=== PATIENT | female | born 1945 | race Caucasian/White ===

== ENCOUNTER 2024-02-21 04:02 | Emergency (ER) | payer MEDICARE, SELFPAY ==
[2024-02-21 04:09] VITALS: BP 179/97; PULSE 98; RESP 18; TEMP 36.6; O2SAT 96; BMI 28.2
[2024-02-21 05:14] LABS: Basophils % 0.1 %; Eosinophils % 0.1 %; Hematocrit 38.5 % (36-47); Lymphocytes # 0.5 10^3/uL (0.8-4.8); Lymphocytes % 7.3 %; Mean Corpuscular HGB Conc 32.7 g/dL (30-55); Mean Corpuscular Hemoglobin 29.6 pg (27-33); Mean Corpuscular Volume 90.6 fl (85-98); Mean Platelet Volume 9.2 fL (7.4-10.4); Monocytes # 0.7 10^3/uL (0.2-0.9); Monocytes % 10.1 %; Neutrophils # 5.58 10^3/uL (1.8-7.7); Neutrophils % 82.1 %; Nucleated Red Blood Cells % 0 %; Platelet Count 212 10^3/cmm (157-399); Red Blood Count 4.25 10^6/uL (3.85-5.65); Red Cell Distribution Width 14.6 % (12.1-15.1); White Blood Count 6.81 10^3/uL (3.29-11.43)
[2024-02-21 05:32] LABS: Alanine Aminotransferase 34 U/L (0-33); Albumin Level 4.4 g/dL (3.5-5.2); Alkaline Phosphatase 90 U/L (35-105); Anion Gap 18.2 (5-19); Aspartate Amino Transferase 37 U/L (0-32); Blood Urea Nitrogen 6 mg/dL (8-23); Calcium 8.8 mg/dL (8.5-10.5); Carbon Dioxide 25 mmol/L (22-29); Chloride 92 mmol/L (98-107); Creatinine Clr Calc Pharmacy 62.5973; Globulin 3.3 g/dL (1.3-4.6); Glucose 131 mg/dL (65-115); Magnesium 1.6 mg/dL (1.7-2.3); Osmolality Calculated 273 mOsm/kg (285-295); Potassium 3.2 mmol/L (3.5-5.1); Sodium 132 mmol/L (136-145); Total Bilirubin 0.5 mg/dL (0.15-1.2); Total Protein 7.7 g/dL (6.6-8.7)
--- NOTE | 2024-02-21 05:40 | ED_ITS ---
Documented by User: Jude Randhawa DO 02/21/24 05:42 HPI - Nausea/Vomiting/Diarrhea 2 General: Chief complaint: Nausea/Vomiting/Diarrhea Stated complaint: n/v headache npo 24hrs + Time Seen by Provider: 02/21/24 05:35 History of Present Illness: Patient presents to the ER with complaints of nausea vomiting diarrhea for about the last several days. Patient says she went to her PCP and was told it was probably because of the Cymbalta she was taking however she stopped it about 3 days ago and the nausea vomiting is stayed but the diarrhea has gotten worse. Patient did states she took a stool sample to her PCP and it all checked out normal. Patient does not get this way very often has been around no sick contacts and think she is getting dehydrated due to the inability to keep fluids down. Review of Systems 2 General: Reports: 10 or more systems reviewed and unremarkable except in HPI and below Physical Exam 2 Const: COMMON NORMALS: no acute distress, average body habitus, patient oriented x3, no limitations, healthy appearing, alert and well nourished HENMT: COMMON NORMALS: normocephalic, atraumatic, hearing grossly normal bilaterally, external ears normal, Normal external nose present and moist oral mucous membranes HEAD & SCALP: normocephalic and atraumatic NOSE: Normal external nose present EXTERNAL EAR: Yes external ears normal Neck/C-Spine: COMMON NORMALS: no JVD Chest: COMMONS NORMALS: normal inspection of the chest and normal palpation of entire chest wall Resp: COMMON NORMALS: normal respiratory effort, No retractions, No use of accessory muscles and clear to auscultation bilaterally AUSCULTATION: clear to auscultation bilaterally Cardio: COMMON NORMALS: no JVD, regular rate, regular rhythm, S1 normal heart sound present, S2 normal heart sound present, No gallops present (Cardio), No clicks present (Cardio), No murmurs present (Cardio) and No rub (Cardio) R ATE: regular rate RHYTHM: regular rhythm HEART SOUNDS: S1 normal heart sound present and S2 normal heart sound present GI: COMMON NORMALS: Normal to inspection, nondistended, normoactive bowel sounds present, Soft to palpation, No hepatosplenomegaly present and no masses; negative for non-tender (Diffusely mildly tender to palpation) PALPATION: Yes Soft to palpation and Yes No hepatosplenomegaly present Neuro: COMMON NORMALS: patient oriented x3 SENSORIUM/ORIENTATION: Yes alert Course 2 Vital Signs: Vital signs: Vital Signs Temperature 97.9 F 02/21/24 04:09 Pulse Rate 85 02/21/24 08:18 Respiratory Rate 16 02/21/24 06:34 Blood Pressure 153/100 02/21/24 07:39 Pulse Oximetry 90 02/21/24 08:18 Oxygen Delivery Me thod Room Air 02/21/24 08:18 MDM - Nausea/Vomiting/Diarrhea Differential Diagnosis Likely gastroenteritis, drug-induced nausea and vomiting and dehydration Medical Records I reviewed the patient's medical records. Lab Data I reviewed the patient's lab results. 02/21/24 05:03 02/21/24 05:03 Radiology Impressions Abdomen/Pelvis CT 02/21/24 06:05 IMPRESSION: 1. Air-fluid levels involving nondilated loops of large and small bowel. Findings are nonspecific but could be related to an ileus. The presence of air-fluid levels within the colon suggests diarrhea. 2. Asymmetric wall thickening involving the anterior wall of the urinary bladder. While this could be related to lack of bladder distension, the asymmetry of the wall thickening is somewhat worrisome. Urologic referral would be recommended for further appropriate workup/follow-up. 3. Small noncalcified pulmonary nodules at the lung bases. Initially would recommend CT of the chest for further evaluation to evaluate for additional pulmonary nodules. At that time, risk can be assessed and further recommendations made. 4. Please see above comments for additional details. Laboratory Results WBC 6.81 10^3/uL (3.29-11.43) 02/21/24 05:03 RBC 4.25 10^6/uL (3.85-5.65) 02/21/24 05:03 Hgb 12.60 g/dL (11.27-16.99) 02/21/24 05:03 Hct 38.5 % (36-47) 02/21/24 05:03 MCV 90.6 fl (85-98) 02/21/24 05:03 MCH 29.6 pg (27-33) 02/21/24 05:03 MCHC 32.7 g/dL (30-55) 02/21/24 05:03 RDW 14.6 % (12.1-15.1) 02/21/24 05:03 Plt Count 212 10^3/cmm (157-399) 02/21/24 05:03 MPV 9.2 fL (7.4-10.4) 02/21/24 05:03 Neut % (Auto) 82.1 % 02/21/24 05:03 Lymph % (Auto) 7.3 % 02/21/24 05:03 [place] % (Auto) 10.1 % 02/21/24 05:03 Eos % (Auto) 0.1 % 02/21/24 05:03 Baso % (Auto) 0.1 % 02/21/24 05:03 Neut # (Auto) 5.58 10^3/uL (1.8-7.7) 02/21/24 05:03 Lymph # (Auto) 0.5 10^3/uL (0.8-4.8) L 02/21/24 05:03 [place] # (Auto) 0.7 10^3/uL (0.2-0.9) 02/21/24 05:03 Eos # (Auto) 0.0 10^3/uL (0.0-0.8) 02/21/24 05:03 Baso # (Auto) 0.0 10^3/uL (0.0-0.1) 02/21/24 05:03 Nucleated RBC % (auto) 0 % 02/21/24 05:03 Nucleated RBCs # 0.0 /100WBC 02/21/24 05:03 Sodium 132 mmol/L (136-145) L 02/21/24 05:03 Potassium 3.2 mmol/L (3.5-5.1) L 02/21/24 05:03 Chloride 92 mmol/L (98-107) L 02/21/24 05:03 Carbon Dioxide 25 mmol/L (22-29) 02/21/24 05:03 Anion Gap 18.2 (5-19) 02/21/24 05:03 BUN 6 mg/dL (8-23) L 02/21/24 05:03 Creatinine 0.4 mg/dL (0.5-0.9) L 02/21/24 05:03 GFR Calculation Not Reportable 02/21/24 05:03 Glucose 131 mg/dL (65-115) H 02/21/24 05:03 Calculated Osmolality 273 mOsm/kg (285-295) L 02/21/24 05:03 Lactic Acid 1.0 mmol/L (0.5-2.2) 02/21/24 05:02 Calcium 8.8 mg/dL (8.5-10.5) 02/21/24 05:03 Magnesium 1.6 mg/dL (1.7-2.3) L 02/21/24 05:03 Total Bilirubin 0.5 mg/dL (0.15-1.2) 02/21/24 05:03 AST 37 U/L (0-32) H 02/21/24 05:03 ALT 34 U/L (0-33) H 02/21/24 05:03 Alkaline Phosphatase 90 U/L (35-105) 02/21/24 05:03 Total Protein 7.7 g/dL (6.6-8.7) 02/21/24 05:03 Albumin 4.4 g/dL (3.5-5.2) 02/21/24 05:03 Globulin 3.3 g/dL (1.3-4.6) 02/21/24 05:03 Urine Color Yellow (Yellow) 02/21/24 06:02 Urine Appearance Clear (CLEAR) 02/21/24 06:02 Urine pH 6 (5-7) 02/21/24 06:02 Ur Specific [place] 1.015 (1.005-1.030) 02/21/24 06:02 Urine Protein Trace (Negative) 02/21/24 06:02 Urine Glucose (UA) Norm (Normal) 02/21/24 06:02 Urine Ketones 1+ (Negative) H 02/21/24 06:02 Urine Blood 2+ (Negative) H 02/21/24 06:02 Urine Nitrate Negative (Negative) 02/21/24 06:02 Urine Bilirubin Neg (Negative) 02/21/24 06:02 Urine Urobilinogen Neg mg/dL (Negative) 02/21/24 06:02 Ur Leukocyte Esterase Negative (Negative) 02/21/24 06:02 Urine RBC 5-10 /hpf (0-2) H 02/21/24 06:02 Urine WBC None /hpf (0-5) 02/21/24 06:02 Ur Squamous Epith Cells 0-4 /hpf (0-5) H 02/21/24 06:02 Amorphous Sediment Not Reportable 02/21/24 06:02 Urine Bacteria Trace /hpf (NONE) 02/21/24 06:02 All radiology interpretation(s) finalized by discharge Discharge Plan Discharge Patient Disposition: Home Clinical Impression: Gastroenteritis, Hematuria, Pulmonary nodule Condition: Stable Prescriptions: New promethazine 25 mg tablet 25 mg PO Q6H PRN (Reason: nausea and vomiting) Qty: 20 0RF No Action gabapentin 600 mg tablet 600 mg PO TID simvastatin 20 mg tablet 20 mg PO BEDTIME albuterol sulfate 90 mcg/actuation HFA aerosol inhaler 2 puff INHALATION Q4H PRN (Reason: Shortness Of Breath Or Wheezing) duloxetine 30 mg capsule,delayed release(DR/EC) 30 mg PO BID Eliquis 5 mg tablet 5 mg PO BID Anoro Ellipta 62.5-25 mcg/actuation blister with device 1 inh INHALATION DAILY Discharge Orders: Discharge ED (Routine); Ordered 02/21/24 Ordered By: Luis Marin Discharge Diet: Clear Liquid Discharge Activity: Increase activity as tolerated Patient Instructions: Opioid Safety, Pain Management Activity Restrictions/Additional Instructions: Thank you for choosing [facility] for your healthcare needs today. It is very important that you follow up as instructed or that you return to the Emergency Department should you have concerns or if your condition changes or worsens in any way. You were seen today for headache with nausea and vomiting. No acute findings were noted. Your potassium and sodium are slightly low this is likely due to the vomiting. CT did not show any acute pathology. Recommend clear liquid diet for the next 2 days you can use promethazine as needed. Continue take your other medications as previously prescribed There were some incidental findings on your CT. These are findings that are not emergent or acute but do require follow-up in the future. The thickness of your bladder was irregular and there was a little bit of red blood cells in your bladder this should be followed up to your primary care doctor with urologist. Additionally there were pulmonary nodules noted these should be further evaluated as an outpatient also through your primary care physician. Sign Out Sign Out Data: Patient Sign Out occurred on 02/21/24 at 06:02. Patient's care was discussed, and care was transferred from Jude Randhawa DO to Luis Marin DO. Coding Level of Care Code ED [employer] for [employer] Documented by User: Luis Marin DO 02/21/24 17:38 HPI - Nausea/Vomiting/Diarrhea 2 General: Chief complaint: Nausea/Vomiting/Diarrhea Stated complaint: n/v headache npo 24hrs + Time Seen by Provider: 02/21/24 05:35 Course 2 Vital Signs: Vital signs: Vital Signs Temperature 97.9 F 02/21/24 04:09 Pulse Rate 85 02/21/24 08:18 Respiratory Rate 16 02/21/24 06:34 Blood Pressure 153/100 02/21/24 07:39 Pulse Oximetry 90 02/21/24 08:18 Oxygen Delivery Me thod Room Air 02/21/24 08:18 MDM - Nausea/Vomiting/Diarrhea Medical Decision Making Care assumed at change of shift labs and imaging reviewed. Patient is some mild hyponatremia and hypokalemia she was given potassium supplement I do not think she is particularly symptomatic of the hyponatremia it is very mild. Suspect she has a viral illness/gastroenteritis the CT shows some fluid in the loops of bowel but no dilation no sign of obstruction or ileus. Will discharge her home with clear liquid diet antiemetics advance diet as tolerated over the next few days. Lab Data 02/21/24 05:03 02/21/24 05:03 Radiology Impressions Abdomen/Pelvis CT 02/21/24 06:05 IMPRESSION: 1. Air-fluid levels involving nondilated loops of large and small bowel. Findings are nonspecific but could be related to an ileus. The presence of air-fluid levels within the colon suggests diarrhea. 2. Asymmetric wall thickening involving the anterior wall of the urinary bladder. While this could be related to lack of bladder distension, the asymmetry of the wall thickening is somewhat worrisome. Urologic referral would be recommended for further appropriate workup/follow-up. 3. Small noncalcified pulmonary nodules at the lung bases. Initially would recommend CT of the chest for further evaluation to evaluate for additional pulmonary nodules. At that time, risk can be assessed and further recommendations made. 4. Please see above comments for additional details. Laboratory Results WBC 6.81 10^3/uL (3.29-11.43) 02/21/24 05:03 RBC 4.25 10^6/uL (3.85-5.65) 02/21/24 05:03 Hgb 12.60 g/dL (11.27-16.99) 02/21/24 05:03 Hct 38.5 % (36-47) 02/21/24 05:03 MCV 90.6 fl (85-98) 02/21/24 05:03 MCH 29.6 pg (27-33) 02/21/24 05:03 MCHC 32.7 g/dL (30-55) 02/21/24 05:03 RDW 14.6 % (12.1-15.1) 02/21/24 05:03 Plt Count 212 10^3/cmm (157-399) 02/21/24 05:03 MPV 9.2 fL (7.4-10.4) 02/21/24 05:03 Neut % (Auto) 82.1 % 02/21/24 05:03 Lymph % (Auto) 7.3 % 02/21/24 05:03 [place] % (Auto) 10.1 % 02/21/24 05:03 Eos % (Auto) 0.1 % 02/21/24 05:03 Baso % (Auto) 0.1 % 02/21/24 05:03 Neut # (Auto) 5.58 10^3/uL (1.8-7.7) 02/21/24 05:03 Lymph # (Auto) 0.5 10^3/uL (0.8-4.8) L 02/21/24 05:03 [place] # (Auto) 0.7 10^3/uL (0.2-0.9) 02/21/24 05:03 Eos # (Auto) 0.0 10^3/uL (0.0-0.8) 02/21/24 05:03 Baso # (Auto) 0.0 10^3/uL (0.0-0.1) 02/21/24 05:03 Nucleated RBC % (auto) 0 % 02/21/24 05:03 Nucleated RBCs # 0.0 /100WBC 02/21/24 05:03 Sodium 132 mmol/L (136-145) L 02/21/24 05:03 Potassium 3.2 mmol/L (3.5-5.1) L 02/21/24 05:03 Chloride 92 mmol/L (98-107) L 02/21/24 05:03 Carbon Dioxide 25 mmol/L (22-29) 02/21/24 05:03 Anion Gap 18.2 (5-19) 02/21/24 05:03 BUN 6 mg/dL (8-23) L 02/21/24 05:03 Creatinine 0.4 mg/dL (0.5-0.9) L 02/21/24 05:03 GFR Calculation Not Reportable 02/21/24 05:03 Glucose 131 mg/dL (65-115) H 02/21/24 05:03 Calculated Osmolality 273 mOsm/kg (285-295) L 02/21/24 05:03 Lactic Acid 1.0 mmol/L (0.5-2.2) 02/21/24 05:02 Calcium 8.8 mg/dL (8.5-10.5) 02/21/24 05:03 Magnesium 1.6 mg/dL (1.7-2.3) L 02/21/24 05:03 Total Bilirubin 0.5 mg/dL (0.15-1.2) 02/21/24 05:03 AST 37 U/L (0-32) H 02/21/24 05:03 ALT 34 U/L (0-33) H 02/21/24 05:03 Alkaline Phosphatase 90 U/L (35-105) 02/21/24 05:03 Total Protein 7.7 g/dL (6.6-8.7) 02/21/24 05:03 Albumin 4.4 g/dL (3.5-5.2) 02/21/24 05:03 Globulin 3.3 g/dL (1.3-4.6) 02/21/24 05:03 Urine Color Yellow (Yellow) 02/21/24 06:02 Urine Appearance Clear (CLEAR) 02/21/24 06:02 Urine pH 6 (5-7) 02/21/24 06:02 Ur Specific [place] 1.015 (1.005-1.030) 02/21/24 06:02 Urine Protein Trace (Negative) 02/21/24 06:02 Urine Glucose (UA) Norm (Normal) 02/21/24 06:02 Urine Ketones 1+ (Negative) H 02/21/24 06:02 Urine Blood 2+ (Negative) H 02/21/24 06:02 Urine Nitrate Negative (Negative) 02/21/24 06:02 Urine Bilirubin Neg (Negative) 02/21/24 06:02 Urine Urobilinogen Neg mg/dL (Negative) 02/21/24 06:02 Ur Leukocyte Esterase Negative (Negative) 02/21/24 06:02 Urine RBC 5-10 /hpf (0-2) H 02/21/24 06:02 Urine WBC None /hpf (0-5) 02/21/24 06:02 Ur Squamous Epith Cells 0-4 /hpf (0-5) H 02/21/24 06:02 Amorphous Sediment Not Reportable 02/21/24 06:02 Urine Bacteria Trace /hpf (NONE) 02/21/24 06:02 Discharge Plan Discharge Patient Disposition: Home Clinical Impression: Gastroenteritis, Hematuria, Pulmonary nodule Condition: Stable Prescriptions: New promethazine 25 mg tablet 25 mg PO Q6H PRN (Reason: nausea and vomiting) Qty: 20 0RF No Action gabapentin 600 mg tablet 600 mg PO TID simvastatin 20 mg tablet 20 mg PO BEDTIME albuterol sulfate 90 mcg/actuation HFA aerosol inhaler 2 puff INHALATION Q4H PRN (Reason: Shortness Of Breath Or Wheezing) duloxetine 30 mg capsule,delayed release(DR/EC) 30 mg PO BID Eliquis 5 mg tablet 5 mg PO BID Anoro Ellipta 62.5-25 mcg/actuation blister with device 1 inh INHALATION DAILY Discharge Orders: Discharge ED (Routine); Ordered 02/21/24 Ordered By: Luis Marin Discharge Diet: Clear Liquid Discharge Activity: Increase activity as tolerated Patient Instructions: Opioid Safety, Pain Management Activity Restrictions/Additional Instructions: Thank you for choosing [facility] for your healthcare needs today. It is very important that you follow up as instructed or that you return to the Emergency Department should you have concerns or if your condition changes or worsens in any way. You were seen today for headache with nausea and vomiting. No acute findings were noted. Your potassium and sodium are slightly low this is likely due to the vomiting. CT did not show any acute pathology. Recommend clear liquid diet for the next 2 days you can use promethazine as needed. Continue take your other medications as previously prescribed There were some incidental findings on your CT. These are findings that are not emergent or acute but do require follow-up in the future. The thickness of your bladder was irregular and there was a little bit of red blood cells in your bladder this should be followed up to your primary care doctor with urologist. Additionally there were pulmonary nodules noted these should be further evaluated as an outpatient also through your primary care physician. Sign Out Sign Out Data: Patient Sign Out occurred on 02/21/24 at 06:02. Patient's care was discussed, and care was transferred from Jude Randhawa DO to Luis Marin DO. Coding Level of Care Code ED [employer]ator for Barbara Rockwell
[2024-02-21] MEDS: sodium chloride 0.9% 1,000 ML 999 ML IV (05:47)
[2024-02-21] MEDS: ondansetron 2 mg/ML SDV 2 mL 4 MG IVP (05:48)
[2024-02-21] MEDS: potassium chloride ER 20 mEq Tablet 40 MEQ PO (05:49)
--- NOTE | 2024-02-21 06:05 | CTR_ITS ---
PROCEDURE INFORMATION: Exam: CT Abdomen And Pelvis With Contrast Exam date and time: 02/21/2024 6:24 AM Age: 78 years old Clinical indication: Abdominal pain; Patient HX: PT. Presents to er with complaint of nausea, vomiting and diarrhea. PT. States that she has had a headache; Additional info: Abd pain TECHNIQUE: Imaging protocol: Computed tomography of the abdomen and pelvis with contrast. Radiation optimization: All CT scans at this facility use at least one of these dose optimization techniques: automated exposure control; mA and/or kV adjustment per patient size (includes targeted exams where dose is matched to clinical indication); or iterative reconstruction. Contrast material: OMNI 350; Contrast volume: 100 ml; Contrast route: INTRAVENOUS (IV); COMPARISON: No relevant prior studies available. RADIATION DOSE METRICS: Total DLP (mGy-cm): 642.07 FINDINGS: Lungs: There is linear atelectasis or scarring involving the right middle lobe and lingula. There are multiple small noncalcified pulmonary nodules at the right lung base. The largest measures 4 mm in size. There may be a small pulmonary nodule at the left lung base as well measuring 3 mm in size. Liver: Normal. No mass. Gallbladder and biliary ducts: The gallbladder is distended. No pericholecystic inflammatory changes noted. No definite gallstones are appreciated. Pancreas: Normal. No ductal dilation. Spleen: Normal. No splenomegaly. Adrenal glands: Normal. No mass. Kidneys and ureters: Normal. No hydronephrosis. Stomach and bowel: There are scattered colonic diverticula. No large bowel wall thickening is appreciated. There are air-fluid levels involving large and small bowel loops. No small bowel wall thickening is appreciated. Appendix: The appendix is not definitely identified. Intraperitoneal space: Unremarkable. No free air. No significant fluid collection. Vasculature: The aorta is normal in caliber. There is calcified plaque involving the aorta and its branch vessels. Lymph nodes: Unremarkable. No enlarged lymph nodes. Urinary bladder: There is asymmetric wall thickening involving the anterior wall of the urinary bladder which measures 7-8 mm in thickness. Reproductive: Unremarkable as visualized. Bones/joints: Unremarkable. No acute fracture. Soft tissues: Unremarkable. CT/CT abdomen pelvis w con* [id number] IMPRESSION: 1. Air-fluid levels involving nondilated loops of large and small bowel. Findings are nonspecific but could be related to an ileus. The presence of air-fluid levels within the colon suggests diarrhea. 2. Asymmetric wall thickening involving the anterior wall of the urinary bladder. While this could be related to lack of bladder distension, the asymmetry of the wall thickening is somewhat worrisome. Urologic referral would be recommended for further appropriate workup/follow-up. 3. Small noncalcified pulmonary nodules at the lung bases. Initially would recommend CT of the chest for further evaluation to evaluate for additional pulmonary nodules. At that time, risk can be assessed and further recommendations made. 4. Please see above comments for additional details.
[2024-02-21 06:11] VITALS: BP 210/116; PULSE 94; RESP 18; O2SAT 94
[2024-02-21 06:18] LABS: Add Urine Microscopic? YES; Bilirubin Urine Neg (Negative); Blood Urine 2+ (Negative); Glucose Urine UA Norm (Normal); Ketones Urine 1+ (Negative); Leukocyte Esterase Urine Negative (Negative); Nitrate Urine Negative (Negative); Protein Urine Trace (Negative); Specific Gravity, Urine 1.015 (1.005-1.030); Urine Appearance Clear (CLEAR); Urine Color Yellow (Yellow); Urobilinogen Urine Neg (Negative); pH Urine 6 (5-7)
[2024-02-21 06:19] LABS: Add Urine Culture? No; Bacteria Urine TRACE /hpf; Squamous Epithelial Cell Urine 0-4 /hpf (0-5)
[2024-02-21] MEDS: iohexol 350 mg/mL 500 mL Btl (per mL) IV (06:28)
[2024-02-21 06:34] VITALS: BP 212/129; PULSE 104; RESP 16; O2SAT 93
[2024-02-21] MEDS: sotalol 80 mg Tablet PO (06:48)
[2024-02-21] MEDS: hyDRALAzine 20 mg/mL INJ 1 mL 10 MG IVP (06:49)
[2024-02-21 07:39] VITALS: BP 153/100; PULSE 97; O2SAT 95
[2024-02-21 08:18] VITALS: PULSE 85; O2SAT 90
[2024-02-21] MEDS: ketorolac 30 mg/mL INJ 15 MG IVP (09:12)
[2024-02-21] MEDS: diphenhydrAMINE 50 mg/mL SDV 1mL 25 MG IVP (09:15)
== END 2024-02-21 09:25 | disposition home or self-care (01) ==
PROVIDERS: Emergency Medicine; Emergency Provider Family Medicine
DX: K52.9 Noninfective gastroenteritis and colitis, unspecified (principal); R31.9 Hematuria, unspecified; R91.1 Solitary pulmonary nodule; Z79.01 Long term (current) use of anticoagulants
CPT/HCPCS: 36415; 74177; 80053; 81001; 83605; 83735; 85025; 96374; 96375; 99285; J0360; J1200; J1885; J2405; J7030; Q9967